=== PATIENT | female | born 1975 | race Caucasian/White ===

== ENCOUNTER → 2019-07-09 15:01 | Outpatient (BNVA) | payer MEDICAID, SELFPAY | PROVIDERS: Family Provider Family Medicine; PCP Family Medicine; Visit Provider Nurse Practitioner Psychiatric/Mental Health | DX: F31.4 Bipolar disorder, current episode depressed, severe, without psychotic features (principal); F43.12 Post-traumatic stress disorder, chronic; F41.1 Generalized anxiety disorder; Z63.79 Other stressful life events affecting family and household | CPT/HCPCS: 99214 ==

== ENCOUNTER → 2019-08-17 12:54 | Outpatient (BNVA) | payer MEDICAID, SELFPAY | PROVIDERS: Family Provider Family Medicine; PCP Family Medicine; Visit Provider Nurse Practitioner Psychiatric/Mental Health | DX: Z63.4 Disappearance and death of family member (principal); F31.4 Bipolar disorder, current episode depressed, severe, without psychotic features; F43.12 Post-traumatic stress disorder, chronic; F41.1 Generalized anxiety disorder | CPT/HCPCS: 99214 ==

== ENCOUNTER → 2019-10-11 08:18 | Outpatient (BNVA) | payer MEDICAID, SELFPAY | PROVIDERS: Family Provider Family Medicine; PCP Family Medicine; Visit Provider Nurse Practitioner Psychiatric/Mental Health | DX: Z63.4 Disappearance and death of family member (principal); F31.4 Bipolar disorder, current episode depressed, severe, without psychotic features; F43.12 Post-traumatic stress disorder, chronic; F41.1 Generalized anxiety disorder | CPT/HCPCS: 99214 ==

== ENCOUNTER → 2019-11-12 08:12 | Outpatient (BNVA) | payer MEDICAID, SELFPAY | PROVIDERS: Family Provider Family Medicine; PCP Family Medicine; Visit Provider Nurse Practitioner Psychiatric/Mental Health | DX: F31.4 Bipolar disorder, current episode depressed, severe, without psychotic features (principal); F43.12 Post-traumatic stress disorder, chronic; F41.1 Generalized anxiety disorder; Z63.4 Disappearance and death of family member | CPT/HCPCS: 99214 ==

== ENCOUNTER → 2019-12-13 07:37 | Outpatient (BNVA) | payer MEDICAID, SELFPAY | PROVIDERS: Family Provider Family Medicine; PCP Family Medicine; Visit Provider Nurse Practitioner Psychiatric/Mental Health | DX: F31.4 Bipolar disorder, current episode depressed, severe, without psychotic features (principal); F43.12 Post-traumatic stress disorder, chronic; F41.1 Generalized anxiety disorder; Z63.4 Disappearance and death of family member | CPT/HCPCS: 99214 ==

== ENCOUNTER → 2020-02-26 09:17 | Outpatient (BNVA) | payer MEDICAID, SELFPAY | PROVIDERS: Family Provider Family Medicine; PCP Family Medicine; Visit Provider Nurse Practitioner Psychiatric/Mental Health | DX: F31.4 Bipolar disorder, current episode depressed, severe, without psychotic features (principal); F43.12 Post-traumatic stress disorder, chronic; F41.1 Generalized anxiety disorder; Z63.4 Disappearance and death of family member; F12.20 Cannabis dependence, uncomplicated | CPT/HCPCS: 99214 ==

== ENCOUNTER → 2020-03-25 08:24 | Outpatient (BNVA) | payer MEDICAID, SELFPAY | PROVIDERS: Family Provider Family Medicine; PCP Family Medicine; Visit Provider Nurse Practitioner Psychiatric/Mental Health | DX: F31.4 Bipolar disorder, current episode depressed, severe, without psychotic features (principal); F43.12 Post-traumatic stress disorder, chronic; F41.1 Generalized anxiety disorder; Z63.4 Disappearance and death of family member | CPT/HCPCS: 99213 ==

== ENCOUNTER → 2020-05-10 16:45 | Outpatient (BNVA) | payer MEDICAID, SELFPAY | PROVIDERS: Family Provider Family Medicine; PCP Family Medicine; Visit Provider Emergency Medicine | DX: M25.521 Pain in right elbow (principal); J02.9 Acute pharyngitis, unspecified; Z20.828 Contact with and (suspected) exposure to other viral communicable diseases | CPT/HCPCS: 73080; 87071; 87635; 87880 ==

== ENCOUNTER 2020-05-16 08:52 | Emergency (ER) | payer MEDICAID, SELFPAY ==
[2020-05-16 09:03] VITALS: BP 106/76; PULSE 89; RESP 18; TEMP 37.3; O2SAT 96; BMI 30.6
[2020-05-16 09:10] VITALS: BP 106/76; PULSE 85; RESP 18; O2SAT 96
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
[2020-05-16] MEDS: ketorolac 60 mg/2 mL INJ IM (09:14)
[2020-05-16 09:18] VITALS: BP 102/72; PULSE 86; RESP 18; TEMP 37.2; O2SAT 96
== END 2020-05-16 09:20 | disposition home or self-care (01) ==
LOC: ER 09:11
PROVIDERS: Emergency Provider Registered Nurse; PCP Family Medicine
DX: M70.31 Other bursitis of elbow, right elbow (principal); J44.9 Chronic obstructive pulmonary disease, unspecified; I10 Essential (primary) hypertension; F17.210 Nicotine dependence, cigarettes, uncomplicated
CPT/HCPCS: 12345; 96372; 99281; 99283; J1885

== ENCOUNTER → 2020-05-26 07:46 | Outpatient (BNVA) | payer MEDICAID, SELFPAY | PROVIDERS: PCP Family Medicine; Visit Provider Nurse Practitioner Psychiatric/Mental Health | DX: F31.4 Bipolar disorder, current episode depressed, severe, without psychotic features (principal); F43.12 Post-traumatic stress disorder, chronic; F41.1 Generalized anxiety disorder; Z63.4 Disappearance and death of family member | CPT/HCPCS: 99214 ==

== ENCOUNTER → 2020-06-24 08:09 | Outpatient (BNVA) | payer MEDICAID, SELFPAY | PROVIDERS: PCP Family Medicine; Visit Provider Nurse Practitioner Psychiatric/Mental Health | DX: F31.4 Bipolar disorder, current episode depressed, severe, without psychotic features (principal); F43.12 Post-traumatic stress disorder, chronic; F41.1 Generalized anxiety disorder; Z63.4 Disappearance and death of family member | CPT/HCPCS: 99214 ==

== ENCOUNTER 2020-07-14 19:20 | Emergency (ER) | payer MEDICAID, SELFPAY ==
[2020-07-14 19:22] VITALS: BP 115/80; PULSE 78; RESP 16; TEMP 36.3; O2SAT 95; BMI 30.1
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
[2020-07-14] MEDS: HYDROcodone-acetaminophen 7.5-325 mg Tablet 1 TAB PO (19:36)
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
[2020-07-14 22:17] VITALS: BP 94/57; PULSE 68; RESP 16; O2SAT 96
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
[2020-07-14 22:24] LABS: Basophils % 0.4 %; Eosinophils # 0.1 10^3/uL (0.0-0.8); Eosinophils % 1.3 %; Hemoglobin 11.7 g/dL (11.5-15.3); Lymphocytes # 2.4 10^3/uL (0.8-4.8); Lymphocytes % 23.7 %; Mean Corpuscular HGB Conc 31.6 g/dL (30.0-36.0); Mean Corpuscular Hemoglobin 26.4 pg (28.0-34.0); Mean Corpuscular Volume 83.5 fL (81-99); Mean Platelet Volume 10.8 fL (7.4-10.4); Monocytes # 1.4 10^3/uL (0.2-0.9); Monocytes % 14.2 %; Neutrophils # 6.07 10^3/uL (1.8-7.7); Neutrophils % 59.8 %; Nucleated Red Blood Cells % 0 %; Platelet Count 267 10^3/cmm (130-400); Red Blood Count 4.43 10^6/uL (4.1-5.3); Red Cell Distribution Width 13.1 % (12.1-15.1); White Blood Count 10.1 10^3/uL (4.0-10.0)
[2020-07-14 22:37] VITALS: BP 86/52; PULSE 74; RESP 16; O2SAT 94
[2020-07-14] MEDS: sodium chloride 0.9% 1,000 ML 999 ML IV ×2 (22:40→23:25)
[2020-07-14 22:49] LABS: Alanine Aminotransferase 31 U/L (0-33); Albumin Level 4.5 g/dL (3.5-5.2); Alkaline Phosphatase 81 IU/L (35-105); Anion Gap 14.2 (5-19); Aspartate Amino Transferase 25 U/L (0-32); Blood Urea Nitrogen 19 mg/dL (6-20); Calcium 9.6 mg/dL (8.5-10.5); Carbon Dioxide 32 mmol/L (22-29); Chloride 95 mmol/L (98-107); Creatinine Clr Calc Pharmacy 58.8242; Globulin 2.5 g/dL (1.3-4.6); Glomerular Filtration Rate 48.8 mL/min (90-130); Glucose 87 mg/dL (65-115); Osmolality Calculated 288 mOsm/kg (285-295); Potassium 3.2 mmol/L (3.5-5.1); Sodium 138 mmol/L (136-145); Total Bilirubin 1.1 mg/dL (0.15-1.2)
[2020-07-14] MEDS: iohexol 300 mg/mL 100 mL Btl IV (22:50)
[2020-07-14 23:02] LABS: Acetaminophen < 5.0 ug/mL (10-30); Alcohol Level < 10 mg/dL (0-10); Salicylate < 0.3 mg/dL (3-10)
[2020-07-14] MEDS: naloxone 0.4 mg/ml SDV IVP (23:22)
[2020-07-14 23:38] VITALS: BP 98/65; PULSE 81; RESP 18; O2SAT 96
[2020-07-14 23:51] LABS: Hematocrit 27.6 % (37.0-47.0); Hemoglobin 8.8 g/dL (11.5-15.3)
[2020-07-15 00:20] LABS: Lactate (Lactic Acid level) 0.5 mmol/L (0.5-2.2)
[2020-07-15 00:59] VITALS: BP 97/68; PULSE 68; RESP 18; O2SAT 96
--- NOTE | 2020-07-15 10:29 | DCPLANNER ---
outpatient pharmacy manager had message to schedule a follow up appointment for patient with ortho. outpatient pharmacy manager called the ortho clinic, spoke with Sheila, gave clinic patients information. outpatient pharmacy manager was told that patients information would be printed and reviewed. Clinic will call patient with appointment.
--- NOTE | 2020-07-22 09:40 | DCPLANNER ---
public health program manager called the ortho clinic, spoke with Sheila to confirm that an appointment had been made for patient. public health program manager was told that clinic was unable to reach patient. public health program manager called phone number [phone], unable to speak with patient at this time, a voicemail was left for patient to return medical case worker phone call.
== END 2020-07-15 01:00 ==
PROVIDERS: Emergency Provider Emergency Medicine; PCP Family Medicine
DX: S32.020A Wedge compression fracture of second lumbar vertebra, initial encounter for closed fracture (principal); D64.9 Anemia, unspecified; J44.9 Chronic obstructive pulmonary disease, unspecified; I10 Essential (primary) hypertension; F17.210 Nicotine dependence, cigarettes, uncomplicated; V89.2XXA Person injured in unspecified motor-vehicle accident, traffic, initial encounter
CPT/HCPCS: 12345; 36415; 70450; 71045; 71260; 72125; 72128; 72131; 72148; 72170; 74177; 80053; 80307; 83605; 85014; 85018; 85025; 96361; 96374; 99283; 99285; J2310; J7030; Q9967

== ENCOUNTER → 2020-08-08 08:17 | Outpatient (BNVA) | payer MEDICAID, SELFPAY | PROVIDERS: PCP Family Medicine; Visit Provider Nurse Practitioner Psychiatric/Mental Health | DX: F31.4 Bipolar disorder, current episode depressed, severe, without psychotic features (principal); F43.12 Post-traumatic stress disorder, chronic; F41.1 Generalized anxiety disorder; Z63.4 Disappearance and death of family member | CPT/HCPCS: 99214 ==

== ENCOUNTER → 2020-09-19 07:48 | Outpatient (BNVA) | payer MEDICAID, SELFPAY | PROVIDERS: PCP Family Medicine; Visit Provider Nurse Practitioner Psychiatric/Mental Health | DX: F31.4 Bipolar disorder, current episode depressed, severe, without psychotic features (principal); F43.12 Post-traumatic stress disorder, chronic; F41.1 Generalized anxiety disorder; Z63.4 Disappearance and death of family member | CPT/HCPCS: 99214 ==

== ENCOUNTER → 2020-10-29 13:38 | Outpatient (BNVA) | payer MEDICAID, SELFPAY | PROVIDERS: PCP Family Medicine; Visit Provider Nurse Practitioner Psychiatric/Mental Health | DX: F31.4 Bipolar disorder, current episode depressed, severe, without psychotic features (principal); F43.12 Post-traumatic stress disorder, chronic; F41.1 Generalized anxiety disorder; Z63.4 Disappearance and death of family member | CPT/HCPCS: 99214 ==

== ENCOUNTER → 2020-12-03 08:10 | Outpatient (BNVA) | payer MEDICAID, SELFPAY | PROVIDERS: PCP Family Medicine; Visit Provider Nurse Practitioner Psychiatric/Mental Health | DX: F31.62 Bipolar disorder, current episode mixed, moderate (principal); F43.12 Post-traumatic stress disorder, chronic; F41.1 Generalized anxiety disorder; Z63.4 Disappearance and death of family member | CPT/HCPCS: 99214 ==

== ENCOUNTER → 2021-03-11 16:09 | Outpatient (BNVA) | payer MEDICAID, SELFPAY | PROVIDERS: PCP Family Medicine; Visit Provider Family Medicine | DX: I10 Essential (primary) hypertension (principal); J30.2 Other seasonal allergic rhinitis; J41.0 Simple chronic bronchitis; K21.9 Gastro-esophageal reflux disease without esophagitis; Z13.220 Encounter for screening for lipoid disorders; Z13.6 Encounter for screening for cardiovascular disorders; D64.9 Anemia, unspecified; R74.8 Abnormal levels of other serum enzymes | CPT/HCPCS: 80053; 80061; 85025 ==

== ENCOUNTER → 2021-07-09 07:42 | Outpatient (BNVA) | payer MEDICAID, SELFPAY | PROVIDERS: PCP Family Medicine; Visit Provider Nurse Practitioner Psychiatric/Mental Health | DX: F31.62 Bipolar disorder, current episode mixed, moderate (principal); F43.12 Post-traumatic stress disorder, chronic; F41.1 Generalized anxiety disorder; Z63.4 Disappearance and death of family member; Z79.899 Other long term (current) drug therapy | CPT/HCPCS: 99214 ==

== ENCOUNTER 2021-09-22 13:10 | Emergency (ER) | payer MEDICAID, SELFPAY ==
--- NOTE | 2021-09-22 13:14 | W.ED.GENADLT ---
HPI - General Adult General: Chief complaint: Back Pain/Injury Stated complaint: SWELLING/PAIN BILAT LEGS Time Seen by Provider: 09/22/21 13:14 Source: patient Mode of arrival: ambulatory Limitations: no limitations History of Present Illness: 45-year-old female patient complaining of low back pain worse when she moves. Denies any recent trauma no radiation of pain into the legs visibly urinate without difficulty no fecal incontinence Onset (ago): minute(s) Location: back Radiation: non-radiation Severity: moderate Quality: sharp Pain Consistency: intermittent Relieving factors: none Exacerbating factors: none Associated symptoms: Deny chest pain, confusion, cough, diaphoresis, decreased appetite, dyspnea, fevers/chills, headache(s), malaise, nausea, rash, palpitations, seizures, short of breath, syncope, vomiting or weakness Review of Systems Const: Denies: malaise or diaphoresis ENMT: Denies: throat pain, ear or mastoid pain, nasal discharge or nasal congestion Card: Denies: chest pain, palpitations or syncope Resp: Denies: dyspnea GI: Denies: nausea or vomiting : Denies: flank pain, difficulty voiding, dysuria, urinary frequency or urinary urgency Skin/Breast: Denies: rash Neuro: Denies: headache(s) or confusion PFSH ED PFSH: Medical History Bereavement Loss of mother Bipolar 1 disorder, mixed, moderate COPD (chronic obstructive pulmonary disease) Fibromyalgia Generalized anxiety disorder GERD (gastroesophageal reflux disease) Hypertension LEON (obstructive sleep apnea) Post-traumatic stress disorder, chronic Psychiatric care Psychiatric care Restless leg syndrome Sciatica Seasonal allergies Surgical History H/O adenoidectomy H/O shoulder surgery H/O tubal ligation H/O wrist surgery H/O: hysterectomy Hx of tonsillectomy Family History Other CAD (coronary artery disease) Cancer Diabetes Lung disease Stroke Social History Smoking and tobacco status: current every day smoker cigarettes Packs smoked per day: 1 Years cigarettes smoked: 32 Quit status (tobacco): not considering quitting Second hand smoke exposure: Yes Smoking risk assessment/counseling performed?: Yes Tobacco counseling given: counseling >3 minutes Alcohol intake: current Alcohol intake frequency: holidays/special occasions only Adopted: No Caregiver/support person: No Lives independently: Yes Household members: other Housing: Manufactured/Mobile home Marital status: Marital status details: a very long time 2004 Number of children: 2 Number of grandchildren: 1 Highest education level completed: Associate Degree: Occupational, Technical, Vocational Program 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 service: No Current occupational status: disabled Current occupational exposures/hazards: No Pets and animals: Yes (3 cats and 2 dogs) Pets & animals: cat(s) and dog(s) History of recent travel: No Leisure activites: art, games and other Leisure activities details: spend time with grandbaby Sexually active: No Current gender identity: Female Damari/Church: [employer] Special damari needs: No Agree to transfusion: Yes Financial difficulty paying for basics: Hard Female Reproductive History: Para: 2 Spontaneous abortions: No Physical Exam Const: GENERAL APPEARANCE: cooperative ORIENTATION/CONSCIOUSNESS: Yes awake HENMT: COMMON NORMALS: normocephalic, atraumatic and hearing grossly normal bilaterally HEAD & SCALP: normocephalic and atraumatic Neck/C-Spine: COMMON NORMALS: no JVD Resp: COMMON NORMALS: normal respiratory effort, No retractions, No use of accessory muscles and clear to auscultation bilaterally AUSCULTATION: clear to auscultation bilaterally Cardio: COMMON NORMALS: no JVD, regular rate, regular rhythm and No murmurs present (Cardio) RATE: regular rate RHYTHM: regular rhythm GI: COMMON NORMALS: Soft to palpation and No hepatosplenomegaly present AUSCULTATION: Yes normoactive bowel sounds PALPATION: Yes Soft to palpation, No Tenderness to palpation present (GI), No Guarding due to palpation present (GI) and Yes No hepatosplenomegaly present Extremity: COMMON NORMALS: normal to inspection, capillary refill normal, no clubbing, cyanosis or edema, no calf tenderness and no pedal edema Neuro: GAIT: Yes Normal gait present MOTOR EXAM: 5/5 motor strength present throughout OTHER: Leg raising is negative bilaterally Skin: COMMON NORMALS: no rashes or lesions noted GENERAL SKIN EXAM: no rashes or lesions noted Course Vital Signs: Vital signs: Vital Signs Temperature 98.0 F 09/22/21 13:21 Pulse Rate 90 09/22/21 14:04 Respiratory Rate 20 H 09/22/21 14:04 Blood Pressure 120/36 09/22/21 13:21 Pulse Oximetry 96 09/22/21 14:04 MDM - General Adult Medical Decision Making Exam unremarkable no significant swelling lower extremities deep tendon reflexes lower extremities are normal. No acute findings were Goeden discharge home follow-up with primary care return if has problems Medical Records I reviewed the patient's medical records. Lab Data I reviewed the patient's lab results. : 09/22/21 13:50 09/22/21 13:50 Laboratory Results WBC 6.3 10^3/uL (4.0-10.0) 09/22/21 13:50 RBC 4.10 10^6/uL (4.1-5.3) 09/22/21 13:50 Hgb 11.6 g/dL (11.5-15.3) 09/22/21 13:50 Hct 35.2 % (37.0-47.0) L 09/22/21 13:50 MCV 85.9 fl (81-99) 09/22/21 13:50 MCH 28.3 pg (28.0-34.0) 09/22/21 13:50 MCHC 33.0 g/dL (30.0-36.0) 09/22/21 13:50 RDW 16.0 % (12.1-15.1) H 09/22/21 13:50 Plt Count 278 10^3/cmm (130-400) 09/22/21 13:50 MPV 9.8 fL (7.4-10.4) 09/22/21 13:50 Neut % (Auto) 55.1 % 09/22/21 13:50 Lymph % (Auto) 25.2 % 09/22/21 13:50 Refugio % (Auto) 16.6 % 09/22/21 13:50 Eos % (Auto) 2.2 % 09/22/21 13:50 Baso % (Auto) 0.6 % 09/22/21 13:50 Neut # (Auto) 3.45 10^3/uL (1.8-7.7) 09/22/21 13:50 Lymph # (Auto) 1.6 10^3/uL (0.8-4.8) 09/22/21 13:50 [place]ugio # (Auto) 1.0 10^3/uL (0.2-0.9) H 09/22/21 13:50 Eos # (Auto) 0.1 10^3/uL (0.0-0.8) 09/22/21 13:50 Baso # (Auto) 0.0 10^3/uL (0.0-0.1) 09/22/21 13:50 Nucleated RBC % (auto) 0 % 09/22/21 13:50 Nucleated RBCs # 0.0 /100WBC 09/22/21 13:50 Sodium 137 mmol/L (136-145) 09/22/21 13:50 Potassium 3.8 mmol/L (3.5-5.1) 09/22/21 13:50 Chloride 95 mmol/L (98-107) L 09/22/21 13:50 Carbon Dioxide 28 mmol/L (22-29) 09/22/21 13:50 Anion Gap 17.8 (5-19) 09/22/21 13:50 BUN 11 mg/dL (6-20) 09/22/21 13:50 Creatinine 1.0 mg/dL (0.5-0.9) H 09/22/21 13:50 GFR Calculation 60.0 mL/min (90-130) L 09/22/21 13:50 Glucose 98 mg/dL (65-115) 09/22/21 13:50 Calculated Osmolality 283 mOsm/kg (285-295) L 09/22/21 13:50 Calcium 10.0 mg/dL (8.5-10.5) 09/22/21 13:50 Total Bilirubin 0.5 mg/dL (0.15-1.2) 09/22/21 13:50 AST 30 U/L (0-32) 09/22/21 13:50 ALT 20 U/L (0-33) 09/22/21 13:50 Alkaline Phosphatase 94 IU/L (35-105) 09/22/21 13:50 Total Protein 7.2 g/dL (6.6-8.7) 09/22/21 13:50 Albumin 4.2 g/dL (3.5-5.2) 09/22/21 13:50 Globulin 3.0 g/dL (1.3-4.6) 09/22/21 13:50 Discharge Plan Discharge Patient Disposition: Home Clinical Impression: Back pain, Bipolar 1 disorder, mixed, moderate Condition: Stable Prescriptions: New diclofenac sodium 75 mg tablet,delayed release (DR/EC) 75 mg PO Q12H PRN (Reason: pain) Qty: 20 0RF No Action fluticasone propionate 50 mcg/actuation spray,suspension 1 spray intranasal Q12H Qty: 15.8 1RF Rx Instructions: administer into each nostril fluticasone propion-salmeterol [Advair Diskus] 100-50 mcg/dose blister with device See Rx Instructions .ROUTE .COMPLEX Qty: 60 2RF Dose Instruction: INHALE 1 DOSE BY MOUTH EVERY 12 HOURS Rx Instructions: INHALE 1 DOSE BY MOUTH EVERY 12 HOURS atenolol 25 mg tablet See Rx Instructions .ROUTE .COMPLEX Qty: 30 2RF Dose Instruction: Take 1 tablet by mouth once daily Rx Instructions: Take 1 tablet by mouth once daily montelukast 10 mg tablet See Rx Instructions .ROUTE .COMPLEX Qty: 30 2RF Dose Instruction: Take 1 tablet by mouth once daily Rx Instructions: Take 1 tablet by mouth once daily promethazine 25 mg tablet See Rx Instructions .ROUTE .COMPLEX Qty: 60 2RF Dose Instruction: TAKE 1 TABLET BY MOUTH EVERY 12 HOURS NEEDED FOR NAUSEA AND VOMITING Rx Instructions: TAKE 1 TABLET BY MOUTH EVERY 12 HOURS NEEDED FOR NAUSEA AND VOMITING fexofenadine [Zoila Allergy] 180 mg tablet 180 mg PO Q24H 30 Days Qty: 30 2RF lamotrigine [Lamictal] 200 mg tablet 200 mg PO QAM Qty: 30 4RF Rx Instructions: Take one tablet every morning quetiapine [Seroquel XR] 200 mg tablet extended release 24 hr 200 mg PO .7 pm Qty: 30 6RF Rx Instructions: Take one tablet at 7 pm quetiapine [Seroquel XR] 400 mg tablet extended release 24 hr 400 mg PO .7 pm Qty: 30 6RF Rx Instructions: Take one tablet at 7 pm duloxetine [Cymbalta] 60 mg capsule,delayed release(DR/EC) 60 mg PO .morning Qty: 60 6RF Rx Instructions: Take two capsules in morning buspirone 30 mg tablet 30 mg PO BID Qty: 60 6RF Rx Instructions: Take one tablet twice per day benztropine 1 mg tablet 1 mg PO BID Qty: 60 6RF Rx Instructions: Take one tablet twice per day benztropine 2 mg tablet 2 mg PO BID Qty: 60 6RF Rx Instructions: Take one tablet twice per day hydroxyzine pamoate 100 mg capsule 100 mg PO TID PRN (Reason: anxiety) Qty: 90 2RF Rx Instructions: Take one capsule three times per day as needed for anxiety mupirocin 2 % ointment See Rx Instructions .ROUTE .COMPLEX Qty: 22 0RF Dose Instruction: APPLY TOPICALLY TO AFFECTED AREA TWICE DAILY Rx Instructions: APPLY TOPICALLY TO AFFECTED AREA TWICE DAILY omeprazole 40 mg capsule,delayed release(DR/EC) See Rx Instructions .ROUTE .COMPLEX Qty: 60 0RF Dose Instruction: Take 1 capsule by mouth twice daily Rx Instructions: Take 1 capsule by mouth twice daily hydrochlorothiazide 12.5 mg capsule See Rx Instructions .ROUTE .COMPLEX Qty: 30 0RF Dose Instruction: Take 1 capsule by mouth in the morning Rx Instructions: Take 1 capsule by mouth in the morning tizanidine 4 mg tablet 6 mg PO Q6H PRN (Reason: muscle spasticity) 30 Days Qty: 180 0RF Discharge Orders: Discharge ED (Routine); Ordered 09/22/21 Ordered By: Erik Connolly Referrals: Lian Sylvester MD [Primary Care Provider] - Discharge Diet: Usual diet Discharge Activity: Increase activity as tolerated Patient Instructions: Opioid Safety Activity Restrictions/Additional Instructions: Case management make arrangements for you to follow-up with behavioral health. Coding Level of Care Code ED Research And Development Specialist for Jenni Fwd Exam Comprehensive
[2021-09-22 13:21] VITALS: BP 120/36; PULSE 104; RESP 20; TEMP 36.7; O2SAT 96; BMI 28.3
[2021-09-22 14:04] VITALS: PULSE 90; RESP 20; O2SAT 96
[2021-09-22 14:13] LABS: Basophils % 0.6 %; Eosinophils # 0.1 10^3/uL (0.0-0.8); Eosinophils % 2.2 %; Hematocrit 35.2 % (37.0-47.0); Hemoglobin 11.6 g/dL (11.5-15.3); Lymphocytes # 1.6 10^3/uL (0.8-4.8); Lymphocytes % 25.2 %; Mean Corpuscular Hemoglobin 28.3 pg (28.0-34.0); Mean Corpuscular Volume 85.9 fl (81-99); Mean Platelet Volume 9.8 fL (7.4-10.4); Monocytes % 16.6 %; Neutrophils # 3.45 10^3/uL (1.8-7.7); Neutrophils % 55.1 %; Nucleated Red Blood Cells % 0 %; Platelet Count 278 10^3/cmm (130-400); White Blood Count 6.3 10^3/uL (4.0-10.0)
--- NOTE | 2021-09-22 14:16 | PC.NURSE ---
1330- Labs drawn. Awaiting XR. Patient remains fidgety/restless, going through bags. Attempt to redirect is helpful for short period of time, about 5 minutes. Then erratic behavior returns.
[2021-09-22 14:35] LABS: Alanine Aminotransferase 20 U/L (0-33); Albumin Level 4.2 g/dL (3.5-5.2); Alkaline Phosphatase 94 IU/L (35-105); Aspartate Amino Transferase 30 U/L (0-32); Blood Urea Nitrogen 11 mg/dL (6-20); Carbon Dioxide 28 mmol/L (22-29); Chloride 95 mmol/L (98-107); Creatinine Clr Calc Pharmacy 67.8188; Glucose 98 mg/dL (65-115); Osmolality Calculated 283 mOsm/kg (285-295); Sodium 137 mmol/L (136-145); Total Bilirubin 0.5 mg/dL (0.15-1.2); Total Protein 7.2 g/dL (6.6-8.7)
[2021-09-22 14:46] LABS: Anion Gap 17.8 (5-19); Potassium 3.8 mmol/L (3.5-5.1)
== END 2021-09-22 15:43 | disposition home or self-care (01) ==
PROVIDERS: Emergency Provider Family Medicine; PCP Family Medicine
DX: M54.50 Low back pain, unspecified (principal); F31.62 Bipolar disorder, current episode mixed, moderate; F17.210 Nicotine dependence, cigarettes, uncomplicated; I10 Essential (primary) hypertension
CPT/HCPCS: 80053; 85025; 99283

== ENCOUNTER → 2021-10-26 11:38 | Outpatient (BNVA) | payer MEDICAID, SELFPAY | PROVIDERS: PCP Family Medicine; Visit Provider Emergency Medicine | DX: R73.09 Other abnormal glucose (principal); L03.114 Cellulitis of left upper limb; W57.XXXA Bitten or stung by nonvenomous insect and other nonvenomous arthropods, initial encounter | CPT/HCPCS: 83036 ==

== ENCOUNTER → 2023-02-18 15:08 | Outpatient (BNVA) | payer MEDICAID, SELFPAY | PROVIDERS: PCP Family Medicine; Visit Provider Nurse Practitioner Psychiatric/Mental Health | DX: Z79.899 Other long term (current) drug therapy (principal); F31.62 Bipolar disorder, current episode mixed, moderate; F43.12 Post-traumatic stress disorder, chronic; F41.1 Generalized anxiety disorder; F12.90 Cannabis use, unspecified, uncomplicated; F17.290 Nicotine dependence, other tobacco product, uncomplicated | CPT/HCPCS: 80053; 80061; 83036 ==

== ENCOUNTER → 2023-03-22 16:14 | Outpatient (BNVA) | payer MEDICAID, SELFPAY | PROVIDERS: PCP Family Medicine; Visit Provider Nurse Practitioner Family | DX: R69 Illness, unspecified (principal); I10 Essential (primary) hypertension; B34.9 Viral infection, unspecified; R51.9 Headache, unspecified; G89.29 Other chronic pain | CPT/HCPCS: 87400; 87426 ==

== ENCOUNTER → 2023-04-11 13:22 | Outpatient (BNVA) | payer MEDICAID, SELFPAY | PROVIDERS: PCP Family Medicine; Referring Provider Family Medicine; Visit Provider Family Medicine | DX: M51.9 Unspecified thoracic, thoracolumbar and lumbosacral intervertebral disc disorder (principal) | CPT/HCPCS: 72100 ==

== ENCOUNTER → 2023-05-03 11:08 | Outpatient (BNVA) | payer MEDICAID, OTHER, SELFPAY | PROVIDERS: PCP Family Medicine; Visit Provider Emergency Medicine | DX: R68.89 Other general symptoms and signs (principal) | CPT/HCPCS: 87400; 87426 ==

== ENCOUNTER → 2023-06-09 14:52 | Outpatient (BNVA) | payer MEDICAID, SELFPAY ==
[2023-06-01 09:40] VITALS: BP 132/90; BMI 33.1
== END ==
PROVIDERS: PCP Family Medicine; Visit Provider Emergency Medicine
DX: M25.561 Pain in right knee (principal)
CPT/HCPCS: 73562

== ENCOUNTER 2023-06-18 18:16 | Emergency (ER) | payer MEDICAID, SELFPAY ==
[2023-06-01 09:40] VITALS: BP 132/90; BMI 33.1
[2023-06-18 18:40] VITALS: BP 119/85; PULSE 92; RESP 16; O2SAT 99
--- NOTE | 2023-06-18 19:20 | ECG_ITS ---
[facility] Test Date: 2023-06-18 Pat Name: Arjun Esquivel Department: Room: Gender: Female It Support Consultant: : 1975 Requested By: Hudson Ross Order Number: [id number] Danna MD: Ezequiel Merritt M.D. Measurements Intervals [place] Rate: 80 P: 7 MT: 144 QRS: 21 QRSD: 101 T: 29 QT: 385 QTc: 446 Interpretive Statements SINUS RHYTHM NONSPECIFIC T-WAVE ABNORMALITY Compared to ECG 02/17/2017 13:16:06 T-wave abnormality now present Electronically Signed On 06-19-2023 19:36:24 IMPLEMENTATION COORDINATOR by Ezequiel Merritt M.D. [id number]
[2023-06-18 19:25] VITALS: BP 106/84; BP 120/86; BP 123/86; PULSE 81; PULSE 85; PULSE 88
[2023-06-18 19:35] LABS: Basophils # 0.1 10^3/uL (0.0-0.1); Basophils % 0.9 %; Eosinophils # 0.2 10^3/uL (0.0-0.8); Eosinophils % 2.2 %; Hematocrit 39.6 % (36-47); Lymphocytes # 2.2 10^3/uL (0.8-4.8); Lymphocytes % 30.2 %; Mean Corpuscular HGB Conc 32.8 g/dL (30-55); Mean Corpuscular Volume 85.3 fl (85-98); Mean Platelet Volume 9.5 fL (7.4-10.4); Monocytes # 0.8 10^3/uL (0.2-0.9); Monocytes % 11.4 %; Neutrophils # 4.06 10^3/uL (1.8-7.7); Neutrophils % 54.9 %; Nucleated Red Blood Cells % 0 %; Platelet Count 224 10^3/cmm (157-399); Red Blood Count 4.64 10^6/uL (3.85-5.65); Red Cell Distribution Width 11.9 % (12.1-15.1); White Blood Count 7.39 10^3/uL (3.29-11.43)
--- NOTE | 2023-06-18 19:36 | ED_ITS ---
HPI - Dizziness 2 General: Chief Complaint: Dizziness Stated Complaint: back pain, light headed, swelling in bilateral leg Time Seen by Provider: 06/18/23 18:38 History of Present Illness: HPI Narrative: 47-year-old female comes into the ER wit h several complaints. The first is that of dizziness. She notes increased dizziness for the past 3 to 4 days. She notes that mostly with change in position. She says that she sees stars, and feels like she may pass out. It is not vertiginous. She was placed on metoprolol recently. She is also on hydrochlorothiazide and losartan. She has not been able to check her blood pressure. She denies chest discomfort, significant shortness of breath. She does admit to bilateral leg swelling. She also complains of right knee pain. This pain has been present for quite some time. She has a locking sensation, and she points to her medial joint line. She was told to use heat and observe, and was placed on Celebrex. It has not seemed to help. She has been dealing with chronic back pain as well. Associated symptoms: Reports headache(s) (Chronic); Denies chest pain, palpitations or vomiting Review of Systems 2 Const: Denies: fever(s) ENMT: Denies: throat pain Card: Denies: chest pain or palpitations Resp: Denies: dyspnea or productive cough GI: Denies: abdominal pain, vomiting or diarrhea : Denies: flank pain Musc: Reports: back pain, joint pain and joint swelling; Denies: joint redness Skin/Breast: Denies: rash Neuro: Reports: headache(s) (Chronic) PFSH ED 2 PFSH: Medical History Peripheral edema Vaping nicotine dependence, tobacco product Marijuana use, episodic chronic pain Psychiatric care Psychiatric care Bipolar 1 disorder, mixed, moderate COPD (chronic obstructive pulmonary disease) LEON (obstructive sleep apnea) Restless leg syndrome Fibromyalgia GERD (gastroesophageal reflux disease) Hypertension Seasonal allergies Generalized anxiety disorder Post-traumatic stress disorder, chronic Surgical History H/O: hysterectomy H/O tubal ligation Hx of tonsillectomy H/O adenoidectomy H/O wrist surgery H/O shoulder surgery Family History Other CAD (coronary artery disease) Cancer Diabetes Lung disease Stroke Social History Smoking and tobacco/nicotine status: current every day tobacco/nicotine user cigarettes Packs smoked per day: 0 Years cigarettes smoked: 32 [ Other cigarette details: quit cigarettes and only vapes] and e-cigarettes E-Cigarette Details: e-cigarette and with nicotine E-cig/vape details: refills 1-2 times a day - 50 mg of nicotine(client showed me the cartridge) Quit status (tobacco/nicotine): has tried quititng Number of times tried to quit tobacco: 2 Second hand smoke exposure: Yes Alcohol intake: current Alcohol intake frequency: few times a month Alcohol type: wine Substance/Drug Use: never Adopted: No Caregiver/support person: No Lives independently: Yes Household members: none Housing: Manufactured/Mobile home Marital status: Marital status details: a very long time 2004 Number of children: 2 Number of grandchildren: 2 Highest education level completed: Associate Degree: Occupational, Technical, Vocational Program 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 service: No Current occupational status: disabled Current occupation: trying to get disability Current occupational exposures/hazards: No Pets and animals: Yes (3 cats and 2 dogs) Pets & animals: cat(s) and dog(s) Leisure activites: art, games, reading and other Leisure activities details: nathalie Sexually active: No Do you think of yourself as: Straight/Heterosexual Current gender identity: Female Damari/Yazidism: Wicca Special damari needs: No Agree to transfusion: Yes Female Reproductive History: Para: 2 Spontaneous abortions: No Physical Exam 2 Const: COMMON NORMALS: no acute distress GENERAL APPEARANCE: cooperative; not ill appearing and not frail appearing HENMT: COMMON NORMALS: normocephalic, atraumatic and Normal external nose present HEAD & SCALP: normocephalic and atraumatic FACE & SINUS: normal facial exam and face symmetric NOSE: Normal external nose present Eye: COMMON NORMALS: Equal, round and reactive pupils present and EOMs intact bilaterally PUPIL: Yes Equal, round and reactive pupils present Neck/C-Spine: GENERAL: Yes trachea midline Chest: CHEST: Yes Symmetrical chest wall rise Resp: COMMON NORMALS: normal respiratory effort, No retractions, No use of accessory muscles and clear to auscultation bilaterally AUSCULTATION: clear to auscultation bilaterally Cardio: COMMON NORMALS: regular rate and regular rhythm RATE: regular rate RHYTHM: regular rhythm GI: COMMON NORMALS: Normal to inspection, nondistended, normoactive bowel sounds present Extremity: COMMON NORMALS: no pedal edema NARRATIVE EXTREMITY EXAM: Examination of the right lower extremity reveals a small knee joint effusion. There is tenderness to palpation medial joint line. There is deep flexion pain. No extension lag. Neuro: YARA COMA SCALE: document GCS findings [facility] coma scale eye opening: Spontaneous [facility] coma scale verbal response: Orientated [facility] coma scale motor response: Obey commands [facility] coma scale total score: 15 S ENSORY EXAM: Yes extremities (intact) Psych: COMMON NORMALS: speech normal SPEECH: Yes normal speech Skin: COMMON NORMALS: no rashes or lesions noted GENERAL SKIN EXAM: no rashes or lesions noted Course 2 Vital Signs: Vital signs: Vital Signs Pulse Rate 81 06/18/23 19:25 Respiratory Rate 16 06/18/23 18:40 Blood Pressure 106/84 06/18/23 19:25 Pulse Oximetry 99 06/18/23 18:40 Oxygen Delivery Me thod Room Air 06/18/23 18:40 MDM - Dizziness Medical Decision Making 47-year-old female with dizziness. She is not orthostatic. CBC is normal. BMP shows an elevation in her creatinine above baseline. This may be from starting Celebrex. Urinalysis is equivocal. BNP is nondetectable. Liver enzymes show an ALT of 34. EKG shows sinus rhythm with normal axis, normal intervals, and no acute ST wave changes. Rate is 80. Head CT is pending. If negative, she will be allowed discharge. Lab Data 06/18/23 19:19 06/18/23 19:[address] 06/18/23 21:09 IMPRESSION: No acute findings. Laboratory Results WBC 7.39 10^3/uL (3.29-11.43) 06/18/23 19:19 RBC 4.64 10^6/uL (3.85-5.65) 06/18/23 19:19 Hgb 13.00 g/dL (11.27-16.99) 06/18/23 19:19 Hct 39.6 % (36-47) 06/18/23 19:19 MCV 85.3 fl (85-98) 06/18/23 19:19 MCH 28.0 pg (27-33) 06/18/23 19:19 MCHC 32.8 g/dL (30-55) 06/18/23 19:19 RDW 11.9 % (12.1-15.1) L 06/18/23 19:19 Plt Count 224 10^3/cmm (157-399) 06/18/23 19:19 MPV 9.5 fL (7.4-10.4) 06/18/23 19:19 Neut % (Auto) 54.9 % 06/18/23 19:19 Lymph % (Auto) 30.2 % 06/18/23 19:19 Owen % (Auto) 11.4 % 06/18/23 19:19 Eos % (Auto) 2.2 % 06/18/23 19:19 Baso % (Auto) 0.9 % 06/18/23 19:19 Neut # (Auto) 4.06 10^3/uL (1.8-7.7) 06/18/23 19:19 Lymph # (Auto) 2.2 10^3/uL (0.8-4.8) 06/18/23 19:19 Owen # (Auto) 0.8 10^3/uL (0.2-0.9) 06/18/23 19:19 Eos # (Auto) 0.2 10^3/uL (0.0-0.8) 06/18/23 19:19 Baso # (Auto) 0.1 10^3/uL (0.0-0.1) 06/18/23 19:19 Nucleated RBC % (auto) 0 % 06/18/23 19:19 Nucleated RBCs # 0.0 /100WBC 06/18/23 19:19 Sodium 141 mmol/L (136-145) 06/18/23 19:19 Potassium 3.5 mmol/L (3.5-5.1) 06/18/23 19:19 Chloride 99 mmol/L (98-107) 06/18/23 19:19 Carbon Dioxide 28 mmol/L (22-29) 06/18/23 19:19 Anion Gap 17.5 (5-19) 06/18/23 19:19 BUN 11 mg/dL (6-20) 06/18/23 19:19 Creatinine 1.1 mg/dL (0.5-0.9) H 06/18/23 19:19 GFR Calculation 53.2 mL/min (90-130) L 06/18/23 19:19 Glucose 86 mg/dL (65-115) 06/18/23 19:19 Calculated Osmolality 291 mOsm/kg (285-295) 06/18/23 19:19 Calcium 9.2 mg/dL (8.5-10.5) 06/18/23 19:19 Magnesium 2.2 mg/dL (1.7-2.3) 06/18/23 19:19 Total Bilirubin 0.3 mg/dL (0.15-1.2) 06/18/23 19:19 AST 26 U/L (0-32) 06/18/23 19:19 ALT 34 U/L (0-33) H 06/18/23 19:19 Alkaline Phosphatase 120 U/L (35-105) H 06/18/23 19:19 NT-Pro-B Natriuret Pep < 36 pg/mL (0-125) 06/18/23 19:19 Total Protein 6.8 g/dL (6.6-8.7) 06/18/23 19:19 Albumin 4.4 g/dL (3.5-5.2) 06/18/23 19:19 Globulin 2.4 g/dL (1.3-4.6) 06/18/23 19:19 Urine Color Yellow (Yellow) 06/18/23 19:44 Urine Appearance Clear (CLEAR) 06/18/23 19:44 Urine pH 5 (5-7) 06/18/23 19:44 Ur Specific [place] 1.015 (1.005-1.030) 06/18/23 19:44 Urine Protein Neg (Negative) 06/18/23 19:44 Urine Glucose (UA) Norm (Normal) 06/18/23 19:44 Urine Ketones Negative (Negative) 06/18/23 19:44 Urine Blood Neg (Negative) 06/18/23 19:44 Urine Nitrate Negative (Negative) 06/18/23 19:44 Urine Bilirubin 1+ (Negative) H 06/18/23 19:44 Urine Urobilinogen Neg mg/dL (Negative) 06/18/23 19:44 Ur Leukocyte Esterase Trace (Negative) H 06/18/23 19:44 Urine RBC 0-4 /hpf (0-2) H 06/18/23 19:44 Urine WBC 5-10 /hpf (0-5) H 06/18/23 19:44 Ur Squamous Epith Cells 10-15 /hpf (0-5) H 06/18/23 19:44 Amorphous Sediment Not Reportable 06/18/23 19:44 Urine Bacteria 1+ /hpf (NONE) H 06/18/23 19:44 All radiology interpretation(s) finalized by discharge Discharge Plan Discharge Patient Disposition: Home Clinical Impression: Bilateral edema of lower extremity, Dizziness Condition: Stable Prescriptions: New furosemide 20 mg tablet 20 mg PO BID Qty: 7 0RF Discontinued hydrochlorothiazide 25 mg tablet 25 mg PO QAM Qty: 30 1RF No Action quetiapine [Seroquel] 100 mg tablet 100 mg PO BID Qty: 60 6RF Rx Instructions: Take one tablet every morning and late afternoon quetiapine [Seroquel XR] 400 mg tablet extended release 24 hr 400 mg PO .7 pm Qty: 30 6RF Rx Instructions: Take one tablet at 7 pm buspirone 10 mg tablet 20 mg PO BID Qty: 120 4RF Rx Instructions: Take two tablets twice per day, last dose no later than 4 pm hydroxyzine pamoate [Vistaril] 50 mg capsule 50 mg PO BID PRN (Reason: anxiety/itching) Qty: 60 3RF Rx Instructions: May take one capsule twice per day as needed for anxiety/itching fluticasone propionate 50 mcg/actuation spray,suspension 1 spray intranasal BID PRN (Reason: allergy symptoms) Qty: 16 5RF Rx Instructions: administer into each nostril omeprazole 40 mg capsule,delayed release(DR/EC) 40 mg PO BID 90 Days Qty: 180 1RF levocetirizine 5 mg tablet 5 mg PO DAILY PRN (Reason: allergy symptoms) 90 Days Qty: 90 1RF metoprolol succinate 25 mg tablet extended release 24 hr 25 mg PO DAILY 90 Days Qty: 90 1RF losartan 50 mg tablet 50 mg PO DAILY 90 Days Qty: 90 1RF fluticasone propion-salmeterol [Advair Diskus] 100-50 mcg/dose blister with device See Rx Instructions .ROUTE .COMPLEX Qty: 60 5RF Dose Instruction: INHALE 1 DOSE BY MOUTH EVERY 12 HOURS Rx Instructions: INHALE 1 DOSE BY MOUTH EVERY 12 HOURS methocarbamol 750 mg tablet 750 mg PO BID PRN (Reason: muscle pain) Qty: 60 2RF celecoxib [Celebrex] 50 mg capsule 50 mg PO BID Qty: 60 2RF Discharge Orders: Discharge ED (Routine); Ordered 06/18/23 Ordered By: Hudson Braxton Referrals: Lian Sylvester MD [Primary Care Provider] - Patient Instructions: Opioid Safety, Pain Management Coding Level of Care Code ED Materials Manager for Jenni Lazo
[2023-06-18 20:15] LABS: Specific Gravity, Urine 1.015 (1.005-1.030); Urine Appearance Clear (CLEAR); Urine Color Yellow (Yellow); pH Urine 5 (5-7)
[2023-06-18 20:16] LABS: Add Urine Microscopic? YES; Bacteria Urine 1+ /hpf; Bilirubin Urine 1+ (Negative); Blood Urine Neg (Negative); Glucose Urine UA Norm (Normal); Ketones Urine Negative (Negative); Leukocyte Esterase Urine Trace (Negative); Nitrate Urine Negative (Negative); Protein Urine Neg (Negative); RBC Urine 0-4 /hpf (0-2); Urobilinogen Urine Neg (Negative)
[2023-06-18 20:25] LABS: Alanine Aminotransferase 34 U/L (0-33); Albumin Level 4.4 g/dL (3.5-5.2); Alkaline Phosphatase 120 U/L (35-105); Aspartate Amino Transferase 26 U/L (0-32); Blood Urea Nitrogen 11 mg/dL (6-20); Calcium 9.2 mg/dL (8.5-10.5); Carbon Dioxide 28 mmol/L (22-29); Chloride 99 mmol/L (98-107); Globulin 2.4 g/dL (1.3-4.6); Glomerular Filtration Rate 53.2 mL/min (90-130); Glucose 86 mg/dL (65-115); Magnesium 2.2 mg/dL (1.7-2.3); NT Pro B Type Natriuretic Pept < 36 pg/mL (0-125); Osmolality Calculated 291 mOsm/kg (285-295); Sodium 141 mmol/L (136-145); Total Bilirubin 0.3 mg/dL (0.15-1.2); Total Protein 6.8 g/dL (6.6-8.7)
[2023-06-18 20:41] LABS: Anion Gap 17.5 (5-19); Potassium 3.5 mmol/L (3.5-5.1)
[2023-06-18 21:00] VITALS: BP 130/87; PULSE 83; O2SAT 99
[2023-06-18] MEDS: lidocaine 2% viscous 15 ML, aluminum-mag hydrox-simethicon 30 ML, sucralfate oral liq 1 GM PO (21:04)
--- NOTE | 2023-06-18 21:09 | CTR_ITS ---
PROCEDURE INFORMATION: Exam: CT Head Without Contrast Exam date and time: 06/18/2023 9:33 PM Age: 47 years old Clinical indication: Patient HX: C/O dizziness; Additional info: Dizzy TECHNIQUE: Imaging protocol: Computed tomography of the head without contrast. Radiation optimization: All CT scans at this facility use at least one of these dose optimization techniques: automated exposure control; mA and/or kV adjustment per patient size (includes targeted exams where dose is matched to clinical indication); or iterative reconstruction. REPORTING DATA: Count of CT and Cardiac NM exams in prior 12 months: This patient has received 0 known CTs and 0 known cardiac nuclear medicine studies in the 12 months prior to the current study. COMPARISON: CT head wo con* [id number] 07/14/2020 7:45 PM RADIATION DOSE METRICS: Total DLP (mGy-cm): 1088.28 FINDINGS: Brain: No acute intracranial hemorrhage. No territorial region of crawford-white dedifferentiation. No extra-axial collection. No mass effect or midline shift. Cerebral ventricles: No acute hyrocephalus. Paranasal sinuses: Visualized sinuses are well-aerated. No fluid levels. Mastoid air cells: Visualized mastoid air cells are well aerated. Orbital cavities: No acute abnormality. Bones/joints: No acute calvarial fracture. Soft tissues: No acute abnormality. CT/CT head wo con* [id number] IMPRESSION: No acute findings.
[2023-06-18 22:25] VITALS: BP 156/100; PULSE 85; O2SAT 97
== END 2023-06-18 22:25 | disposition home or self-care (01) ==
PROVIDERS: Emergency Provider Emergency Medicine; PCP Family Medicine
DX: R60.0 Localized edema (principal); R42 Dizziness and giddiness; F17.210 Nicotine dependence, cigarettes, uncomplicated; F17.290 Nicotine dependence, other tobacco product, uncomplicated; J44.9 Chronic obstructive pulmonary disease, unspecified; I10 Essential (primary) hypertension
CPT/HCPCS: 36415; 70450; 80053; 81001; 83735; 83880; 85025; 93005; 99285

== ENCOUNTER → 2023-08-01 15:48 | Outpatient (BNVA) | payer MEDICAID, SELFPAY ==
[2023-06-01 09:40] VITALS: BP 132/90; BMI 33.1
== END ==
PROVIDERS: PCP Family Medicine; Referring Provider Family Medicine; Visit Provider Specialist
DX: M25.561 Pain in right knee (principal)
CPT/HCPCS: 73560; 73565; 99204

== ENCOUNTER 2023-08-15 11:24 | Outpatient (CLI) | payer MEDICAID, SELFPAY ==
[2023-06-01 09:40] VITALS: BP 132/90; BMI 33.1
--- NOTE | 2023-08-15 11:27 | MR_ITS ---
WS: [id number] MRI LUMBAR SPINE NONCONTRAST TECHNIQUE: Sagittal T1, T2 and STIR imaging. Axial T1 and T2 imaging. CLINICAL INFORMATION: DDD,LUMBAR COMPARISON: MRI 2020 FINDINGS: Mild lumbar curve. No acute compression. No high-grade central canal stenosis. Mild compression super ior endplate L2 unchanged. No new compression fractures. L1-L2: Mild annular bulging. Narrowing of the RIGHT subarticular recess. Mild facet arthropathy. Fora men are patent. L2-L3: No significant disc bulging. Mild facet arthropathy. Spinal canal and foramen are patent. L3-L4: Mild annular bulging with narrowing of the LEFT subarticular recess. Slight impingement on tra versing LEFT L4 nerve root. LEFT foraminal protrusion with mild LEFT foraminal narrowing and slight i mpingement on the exiting LEFT L3 nerve root. RIGHT foramen is patent. Moderate facet arthropathy. L4-L5: Mild annular bulging with slight narrowing of the subarticular recess bilaterally. Tiny RIGHT eccentric annular fissure. Mild LEFT and no significant RIGHT foraminal narrowing. Mild facet arthrop athy. L5-S1: No significant disc bulging. Moderate facet arthropathy. Spinal canal and foramen are patent. Visualized pelvic bony structures: Normal. Paravertebral soft tissues: Normal. Partially visualized hepatomegaly. IMPRESSION: 1. Chronic compression superior endplate L2 is unchanged compared to previous. No new or acute compr ession fractures. 2. LEFT proximal foraminal protrusion L3-4 slightly impinges the exiting LEFT L3 nerve root. Recomme nd correlation LEFT L3 nerve root symptoms. This is similar to previous. Narrowing of the LEFT L3-4 s ubarticular recess. 3. Disc bulge L4-5 with a small RIGHT eccentric annular fissure is new compared to previous. Slight narrowing of the subarticular recess at this level. 4. Mild disc bulging L1-2 with slight narrowing of the RIGHT subarticular recess appears unchanged. 5. Moderate facet arthropathy L3-L5.
== END 2023-08-15 11:25 | disposition home or self-care (01) ==
LOC: RAD 11:25
PROVIDERS: PCP Family Medicine; Visit Provider General Practice
DX: M51.36 Other intervertebral disc degeneration, lumbar region (principal)
CPT/HCPCS: 72148

== ENCOUNTER 2023-10-11 13:09 | Outpatient (CLI) | payer MEDICAID, SELFPAY ==
[2023-06-01 09:40] VITALS: BP 132/90; BMI 33.1
--- NOTE | 2023-10-11 13:45 | MR_ITS ---
WS: [id number] MRI RIGHT KNEE NONCONTRAST TECHNIQUE: Axial PD, coronal PD fat sat, coronal PD, sagittal PD, and sagittal PD fat-sat images obta nayd. CLINICAL INFORMATION: M25.569 - Pain in unspecified knee COMPARISON: None. FINDINGS: Distal quadriceps and patella tendons are intact. Hypertrophic patella. Normal ACL and PCL. Normal la teral meniscus. Mild chronic thinning of the medial meniscus which appears intact. No acute appearing meniscal tears. Normal lateral collateral ligament. Normal biceps femoris. Mild chondromalacia murphy la worse involving the medial patella facet. No subchondral edema. Medial and lateral patellar retinaculum appear intact. Small amount of fluid and edema deep to the me dial collateral ligament consistent with grade 1 injury. MCL appears intact. Popliteus appears intact . Normal popliteal fossa. Normal bone marrow signal involving the femoral condyles and tibial plateau . Mild degenerative narrowing medial and lateral joint compartments. IMPRESSION: 1. ACL and PCL appear intact. 2. Mild chondromalacia patella worse involving the medial patella facet. 3. Grade 1 injury MCL. 4. No acute appearing meniscal tears. 5. Mild tricompartment arthritis. Outbridge grading: grade II: blister-like swelling/fraying of articular cartilage extending to surfac e
== END 2023-10-11 13:10 | disposition home or self-care (01) ==
LOC: RAD 13:09
PROVIDERS: PCP Family Medicine; Visit Provider Specialist
DX: S89.81XA Other specified injuries of right lower leg, initial encounter (principal); M22.41 Chondromalacia patellae, right knee; M17.11 Unilateral primary osteoarthritis, right knee; X58.XXXA Exposure to other specified factors, initial encounter
CPT/HCPCS: 73721

== ENCOUNTER → 2023-10-19 13:00 | Outpatient (BNVA) | payer MEDICAID, SELFPAY ==
[2023-06-01 09:40] VITALS: BP 132/90; BMI 33.1
== END ==
PROVIDERS: PCP Family Medicine; Visit Provider Specialist
DX: M25.561 Pain in right knee (principal); G89.29 Other chronic pain
CPT/HCPCS: 99214

== ENCOUNTER → 2023-11-08 11:21 | Outpatient (BNVA) | payer MEDICAID, OTHER, SELFPAY ==
[2023-06-01 09:40] VITALS: BP 132/90; BMI 33.1
== END ==
PROVIDERS: PCP Family Medicine; Visit Provider Family Medicine
DX: I10 Essential (primary) hypertension (principal); R60.0 Localized edema; M25.561 Pain in right knee; G89.29 Other chronic pain; M51.9 Unspecified thoracic, thoracolumbar and lumbosacral intervertebral disc disorder; J30.2 Other seasonal allergic rhinitis
CPT/HCPCS: 80048

== ENCOUNTER → 2023-11-24 11:29 | Outpatient (BNVA) | payer MEDICAID, SELFPAY ==
[2023-06-01 09:40] VITALS: BP 132/90; BMI 33.1
== END ==
PROVIDERS: PCP Family Medicine; Visit Provider Emergency Medicine
DX: R55 Syncope and collapse (principal)
CPT/HCPCS: 93005

== ENCOUNTER → 2023-12-01 09:50 | Outpatient (BNVA) | payer MEDICAID, SELFPAY ==
[2023-06-01 09:40] VITALS: BP 132/90; BMI 33.1
== END ==
PROVIDERS: PCP Family Medicine; Visit Provider Family Medicine
DX: R39.9 Unspecified symptoms and signs involving the genitourinary system (principal); R30.9 Painful micturition, unspecified; I10 Essential (primary) hypertension; J30.2 Other seasonal allergic rhinitis; N39.0 Urinary tract infection, site not specified; N30.01 Acute cystitis with hematuria; R42 Dizziness and giddiness
CPT/HCPCS: 81000; 87077; 87086; 87184

== ENCOUNTER 2023-12-19 19:57 | Emergency (ER) | payer MEDICAID, SELFPAY ==
[2023-06-01 09:40] VITALS: BP 132/90; BMI 33.1
[2023-12-19 20:01] VITALS: BP 124/90; PULSE 95; RESP 16; TEMP 37.1; O2SAT 97
[2023-12-19 21:08] VITALS: BP 129/98; PULSE 92; RESP 16; O2SAT 99
--- NOTE | 2023-12-19 21:16 | XRR_ITS ---
PROCEDURE INFORMATION: Exam: XR Right Knee Exam date and time: 12/19/2023 9:30 PM Age: 48 years old Clinical indication: Pain; Knee; Right TECHNIQUE: Imaging protocol: Radiologic exam of the right knee. Views: 3 views. COMPARISON: MR knee RT wo con* [id number] 10/11/2023 1:56 PM FINDINGS: Bones/joints: Normal. Soft tissues: Normal. XR/XR knee RT 3V* [id number] IMPRESSION: No acute findings.
[2023-12-19] MEDS: ketorolac 30 mg/mL INJ IM (21:25)
[2023-12-19] MEDS: diphenhydrAMINE 50 mg/mL SDV 1mL IM (21:26)
[2023-12-19] MEDS: metoclopramide 5 mg/mL SDV 2 mL 10 MG IM (21:29)
--- NOTE | 2023-12-19 22:16 | W.ED.EXTPRO ---
HPI - Extremity Problem General: Chief complaint: Extremity Injury, Lower Stated complaint: right knee pain, headache pain Time Seen by Provider: 12/19/23 21:16 Source: patient Mode of arrival: ambulatory Limitations: no limitations History of Present Illness: 48-year-old female states she had a headache over the last 2 days states she has a history of migraine headaches this feels like her similar headaches in the past she does have photophobia and phonophobia rates the pain a 7 out of 10. States she is also been having some increased right knee pain she had a right knee injury months ago she is seen orthopedics had MRI that showed a grade 1 MCL injury she states that she is just had worsening pain and not able to bear weight without having pain. Denies any new injuries. Denies any fevers. Associated symptoms: Deny chest pain, fever(s) or rash Review of Systems Const: Denies: fever(s), chills, body aches or change in appetite Eyes: Denies: blurry vision ENMT: Denies: throat pain or dental pain Card: Denies: chest pain Resp: Denies: dyspnea GI: Denies: abdominal pain, nausea, vomiting or diarrhea Musc: Reports: extremity pain; Denies: neck pain or back pain Skin/Breast: Denies: rash Neuro: Reports: headache(s) PFSH ED PFSH: Medical History Peripheral edema Vaping nicotine dependence, tobacco product Marijuana use, episodic chronic pain Psychiatric care Psychiatric care Bipolar 1 disorder, mixed, moderate COPD (chronic obstructive pulmonary disease) LEON (obstructive sleep apnea) Restless leg syndrome Fibromyalgia GERD (gastroesophageal reflux disease) Hypertension Seasonal allergies Generalized anxiety disorder Post-traumatic stress disorder, chronic Surgical History H/O: hysterectomy H/O tubal ligation Hx of tonsillectomy H/O adenoidectomy H/O wrist surgery H/O shoulder surgery Family History Other CAD (coronary artery disease) Cancer Diabetes Lung disease Stroke Social History Smoking and tobacco/nicotine status: current every day tobacco/nicotine user cigarettes Packs smoked per day: 0 Years cigarettes smoked: 32 [ Other cigarette details: quit cigarettes and only vapes] and e-cigarettes E-Cigarette Details: e-cigarette and with nicotine E-cig/vape details: refills 1-2 times a day - 50 mg of nicotine(client showed me the cartridge) Quit status (tobacco/nicotine): has tried quititng Number of times tried to quit tobacco: 2 Second hand smoke exposure: Yes Alcohol intake: current Alcohol intake frequency: few times a month Alcohol type: wine Substance/Drug Use: never Adopted: No Caregiver/support person: No Lives independently: Yes Household members: none Housing: Manufactured/Mobile home Marital status: Marital status details: a very long time 2004 Number of children: 2 Number of grandchildren: 2 Highest education level completed: Associate Degree: Occupational, Technical, Vocational Program 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 service: No Current occupational status: disabled Current occupation: trying to get disability Current occupational exposures/hazards: No Pets and animals: Yes (3 cats and 2 dogs) Pets & animals: cat(s) and dog(s) Leisure activites: art, games, reading and other Leisure activities details: nathalie Sexually active: No Do you think of yourself as: Straight/Heterosexual Current gender identity: Female Damari/Congregation: Wicca Special damari needs: No Agree to transfusion: Yes Female Reproductive History: Para: 2 Spontaneous abortions: No Physical Exam Const: COMMON NORMALS: no acute distress, patient oriented x3 and healthy appearing HENMT: COMMON NORMALS: normocephalic and atraumatic HEAD & SCALP: normocephalic and atraumatic Neck/C-Spine: COMMON NORMALS: full ROM and supple Chest: COMMONS NORMALS: normal inspection of the chest Resp: COMMON NORMALS: normal respiratory effort, No retractions, No use of accessory muscles and clear to auscultation bilaterally AUSCULTATION: clear to auscultation bilaterally Cardio: COMMON NORMALS: regular rate, regular rhythm and No murmurs present (Cardio) RATE: regular rate RHYTHM: regular rhythm Extremity: NARRATIVE EXTREMITY EXAM: Slight tenderness noted on right knee no obvious deformity distal pulses sensation intact. Neuro: COMMON NORMALS: patient oriented x3, moves all extremities and no focal motor deficits Psych: COMMON NORMALS: mental status grossly normal, Normal thought process present and cooperative THOUGHT PROCESS: Normal thought process present Skin: COMMON NORMALS: no rashes or lesions noted and no wounds GENERAL SKIN EXAM: no rashes or lesions noted Course Vital Signs: Vital signs: Vital Signs Temperature 98.7 F 12/19/23 20:01 Pulse Rate 92 12/19/23 21:08 Respiratory Rate 16 12/19/23 21:08 Blood Pressure 129/98 12/19/23 21:08 Pulse Oximetry 99 12/19/23 21:08 Oxygen Delivery Me thod Room Air 12/19/23 21:08 MDM - Extremity (Nontraumatic) Medical Decision Making Patient presents here with a headache likely migraine headache she has no signs of subarachnoid hemorrhage or meningitis headaches improving here she is also had right knee pain with more difficulty walking she had MRI it showed a grade 1 MCL strain no new injuries x-ray here showed no acute abnormalities will have her use crutches weight-bear as tolerated we will get her follow-up with Jes. Medical Records I reviewed the patient's medical records. XR interpretation done by ED provider, pending radiology final review ED provider radiology interpretation(s): xr Knee: no acute abnormality Discharge Plan Discharge Patient Disposition: Home Clinical Impression: Knee pain, right Condition: Stable Prescriptions: New Naprosyn 500 mg tablet 500 mg PO BID PRN (Reason: pain) Qty: 20 0RF No Action acetylcysteine 600 mg capsule 600 mg PO BID Qty: 60 3RF Rx Instructions: Take one capsule twice per day propranolol 20 mg tablet 20 mg PO BID Qty: 60 6RF Rx Instructions: Take one tablet twice per day quetiapine [Seroquel XR] 400 mg tablet extended release 24 hr 400 mg PO .7 pm Qty: 30 6RF Rx Instructions: Take one tablet at 7 pm quetiapine [Seroquel] 100 mg tablet 100 mg PO BID Qty: 60 6RF Rx Instructions: Take one tablet every morning and late afternoon furosemide 20 mg tablet 20 mg PO QAM PRN (Reason: edema) 30 Days Qty: 30 2RF hydrochlorothiazide 25 mg tablet 25 mg PO BID 30 Days Qty: 60 5RF metoprolol succinate 25 mg tablet extended release 24 hr 25 mg PO DAILY 90 Days Qty: 90 1RF omeprazole 40 mg capsule,delayed release(DR/EC) 40 mg PO BID 90 Days Qty: 180 1RF fluticasone propionate 50 mcg/actuation spray,suspension 1 spray intranasal BID PRN (Reason: allergy symptoms) Qty: 16 5RF Rx Instructions: administer into each nostril cyclobenzaprine 10 mg tablet 10 mg PO Q8H 30 Days Qty: 90 5RF fluticasone propion-salmeterol [Advair Diskus] 100-50 mcg/dose blister with device See Rx Instructions .ROUTE .COMPLEX Qty: 60 5RF Dose Instruction: INHALE 1 DOSE BY MOUTH EVERY 12 HOURS Rx Instructions: INHALE 1 DOSE BY MOUTH EVERY 12 HOURS azelastine 137 mcg (0.1 %) aerosol,spray 1 spray intranasal BID Rx Instructions: administer into each nostril hydroxyzine pamoate 50 mg capsule 50 mg PO BID PRN (Reason: anxiety/itching) Qty: 60 3RF Rx Instructions: May take one capsule twice per day as needed for anxiety/itching (DME) Hinged Knee Brace See Rx Instructions .Route .MEDSUPPLY Qty: 1 0RF Rx Instructions: As directed ondansetron 4 mg tablet,disintegrating 4 mg PO Q6H PRN (Reason: nausea and vomiting) Qty: 20 0RF Rx Instructions: 340b please loratadine 10 mg tablet 10 mg PO DAILY 90 Days Qty: 90 1RF Discharge Orders: Discharge ED (Routine); Ordered 12/19/23 Ordered By: Elder Glasgow Referrals: Kristan Andre MD [Physician] - 4-7 days Lian Sylvester MD [Primary Care Provider] - Discharge Diet: Advance as tolerated Discharge Activity: Resume usual activity Patient Instructions: Knee Pain (ED) Coding Level of Care Code ED Children'S Book Author for Jenni Lazo
[2023-12-19] MEDS: HYDROcodone-acetaminophen 5-325 mg Tablet 1 TAB PO (22:23)
--- NOTE | 2023-12-22 07:25 | DCPLANNER ---
messaged ortho for er f/u
== END 2023-12-19 22:31 | disposition home or self-care (01) ==
PROVIDERS: Emergency Provider Emergency Medicine; PCP Family Medicine
DX: M25.561 Pain in right knee (principal); F17.210 Nicotine dependence, cigarettes, uncomplicated; F17.290 Nicotine dependence, other tobacco product, uncomplicated; J44.9 Chronic obstructive pulmonary disease, unspecified; I10 Essential (primary) hypertension
CPT/HCPCS: 73562; 96372; 99284; J1200; J1885; J2765

== ENCOUNTER → 2023-12-27 10:30 | Outpatient (BNVA) | payer MEDICAID, SELFPAY ==
[2023-06-01 09:40] VITALS: BP 132/90; BMI 33.1
== END ==
PROVIDERS: PCP Family Medicine; Visit Provider Nurse Practitioner
DX: M25.361 Other instability, right knee (principal); S83.411A Sprain of medial collateral ligament of right knee, initial encounter; M17.11 Unilateral primary osteoarthritis, right knee; W19.XXXA Unspecified fall, initial encounter
CPT/HCPCS: 20610; 99214; J1100; J2795; J3301

== ENCOUNTER → 2024-02-13 11:42 | Outpatient (BNVA) | payer MEDICAID, SELFPAY ==
[2023-06-01 09:40] VITALS: BP 132/90; BMI 33.1
== END ==
PROVIDERS: PCP Family Medicine; Visit Provider Family Medicine
DX: Z79.899 Other long term (current) drug therapy (principal); I10 Essential (primary) hypertension; E87.6 Hypokalemia; R73.9 Hyperglycemia, unspecified
CPT/HCPCS: 80053; 83036; 83735

== ENCOUNTER → 2024-02-20 15:09 | Outpatient (BNVA) | payer MEDICAID, SELFPAY ==
[2023-06-01 09:40] VITALS: BP 132/90; BMI 33.1
== END ==
PROVIDERS: PCP Family Medicine; Visit Provider Nurse Practitioner
DX: S83.512A Sprain of anterior cruciate ligament of left knee, initial encounter (principal); X58.XXXA Exposure to other specified factors, initial encounter; M17.12 Unilateral primary osteoarthritis, left knee
CPT/HCPCS: 20610; 73560; 73565; 99214; J2795; J3301

== ENCOUNTER → 2024-03-11 15:27 | Outpatient (BNVA) | payer MEDICAID, SELFPAY ==
[2023-06-01 09:40] VITALS: BP 132/90; BMI 33.1
== END ==
PROVIDERS: PCP Family Medicine; Visit Provider Nurse Practitioner Family
DX: R30.0 Dysuria (principal)
CPT/HCPCS: 81000; 87086

== ENCOUNTER → 2024-04-02 16:23 | Outpatient (BNVA) | payer MEDICAID, OTHER, SELFPAY ==
[2023-06-01 09:40] VITALS: BP 132/90; BMI 33.1
== END ==
PROVIDERS: PCP Family Medicine; Visit Provider Nurse Practitioner
DX: M17.12 Unilateral primary osteoarthritis, left knee (principal); M25.562 Pain in left knee
CPT/HCPCS: 20610; 36415; 80053; 81001; 85025; 87086; J1100; J2795; J3301

== ENCOUNTER → 2024-04-09 11:17 | Outpatient (BNVA) | payer MEDICAID, SELFPAY ==
[2023-06-01 09:40] VITALS: BP 132/90; BMI 33.1
== END ==
PROVIDERS: PCP Family Medicine; Visit Provider Family Medicine
DX: Z01.818 Encounter for other preprocedural examination (principal)
CPT/HCPCS: 81000; 85025; 93005

== ENCOUNTER 2024-04-26 07:55 | Day surgery (SDC) | payer MEDICAID, SELFPAY ==
[2023-06-01 09:40] VITALS: BP 132/90; BMI 33.1
[2024-04-26] VITALS (19 sets, daily range): BP systolic 104–139; BP diastolic 64–95; PULSE 67–87; RESP 12–18; TEMP 36.1–36.6; O2SAT 89–100; BMI 33.1
--- NOTE | 2024-04-26 08:27 | P.HPUD_ITS ---
Surgery/Procedure H&P Update DATE OF PROCEDURE: April 26, 2024 DATE H&P PERFORMED: 04/09/24 H&P UPDATE INFORMATION: I have reviewed H&P completed within last 30 days, I have examined patient prior to procedure, No changes to prior documentation and H&P is in [facility] [place] [facility] EMR on date indicated CHANGES TO PREVIOUS DOCUMENTATION: HCTZ increased to TID on 04/25/24 PRIMARY INDICATION FOR PROCEDURE: MRI [facility] Read by Dr. Hanson IMPRESSION: 1. ACL and PCL appear intact. 2. Mild chondromalacia patella worse involving the medial patella facet. 3. Grade 1 injury MCL. 4. No acute appearing meniscal tears. 5. Mild tricompartment arthritis. Outbridge grading: grade II: blister-like swelling/fraying of articular cartilage extending to surface PLANNED PROCEDURE: Operation Date: 04/26/24 09:10 Proposed Procedures p Knee Arthroscopy with debridement(Right) - Kristan Andre MD Related Problem List Diagnoses (1) Chronic pain of right knee: (2) Osteoarthritis of right knee: Qualifiers: Osteoarthritis type: primary Qualified Code(s): M17.11 - Unilateral primary osteoarthritis, right knee (3) MCL sprain of right knee: Qualifiers: Encounter type: initial encounter Qualified Code(s): S83.411A - Sprain of medial collateral ligament of right knee, initial encounter
--- NOTE | 2024-04-26 08:34 | P.ANESASSM_ITS ---
Pre-Anesthetic Assessment Height/Weight: Height 1.6 m Weight 84.822 kg Temp Pulse Resp BP Pulse Ox O2 Del Method 97.3 F L 87 18 128/95 96 Room Air 04/26/24 08:08 04/26/24 08:08 04/26/24 08:08 04/26/24 08:08 04/26/24 08:08 04/26/24 08:08 Operation Date: 04/26/24 09:10 Proposed Procedures p Knee Arthroscopy with debridement(Right) - Kristan Andre MD Familial anesthetic complications: none Was Beta Guy taken within 24 hours: N/A Was Clonidine taken within 24 hours: N/A Last intake: Intake Last Liquid Date 04/25/24 Last Liquid Time 23:50 Last Solid Date 04/25/24 Last Solid Time 23:50 Social No alcohol and No tobacco vapes Exam alert, oriented x 3, clear to auscultation bilaterally and regular rate & rhythm Airway Mallampati: Class I Dentition: full Pulmonary Asthma, Chronic Obstructive Pulmonary Disease and Sleep Apnea CV/HEM Hypertension GI Gastroesophageal Reflux Disease Metabolic Diabetes Mellitus Anesthetic Plan ASA status: 3 Anesthesia: General Risk of > 500 ml blood loss (7ml/kg in children): No Medications/Allergies Home Medications Medication Instructions Recorded Confirmed Last Taken Type azelastine 137 mcg (0.1 %) nasal 1 spray intranasal BID 08/01/23 04/25/24 Unknown History spray Hinged Knee Brace #1 ea 10/19/23 04/25/24 Unknown Rx propranolol 20 mg tablet 20 mg PO BID #60 tabs 12/07/23 04/25/24 04/26/24 Rx quetiapine 400 mg tablet,extended 400 mg PO .7 pm #30 tabs 12/07/23 04/25/24 04/24/24 Rx release 24 hr (Seroquel XR) diclofenac sodium 1 % topical gel 2 g topical QID #100 grams 12/27/23 04/25/24 Unknown Rx cetirizine 10 mg tablet (Allergy 10 mg PO DAILY PRN Allergic 01/18/24 04/25/24 04/25/24 History Relief (cetirizine)) Symptoms levocetirizine 5 mg tablet (Xyzal) 5 mg PO DAILY 01/18/24 04/25/24 04/25/24 History quetiapine 100 mg tablet (Seroquel) 100 mg PO DIRECTED #60 tabs 01/18/24 04/25/24 04/25/24 Rx tizanidine 4 mg capsule 4 mg PO BID PRN Muscle Spasm 01/18/24 04/25/24 04/25/24 History alcohol swabs 1 pad topical DIRECTED #200 ea 02/13/24 04/25/24 Unknown Rx blood-glucose meter #1 ea 02/13/24 04/25/24 Unknown Rx lancets #200 ea 02/13/24 04/25/24 Unknown Rx blood sugar diagnostic (Blood #200 ea 02/20/24 04/25/24 Unknown Rx Glucose Test strips) hinged knee brace #1 ea 02/20/24 04/25/24 Unknown Rx buspirone 30 mg tablet 30 mg PO BID #60 tabs 03/29/24 04/25/24 04/25/24 Rx duloxetine 30 mg capsule,delayed 30 mg PO .morning #30 caps 03/29/24 04/25/24 04/25/24 Rx release (Cymbalta) Advair Diskus 100 mcg-50 mcg/dose See Rx Instructions .Route 04/02/24 04/25/24 04/25/24 Rx powder for inhalation (fluticasone .COMPLEX #60 ea propion-salmeterol) empagliflozin 10 mg tablet 10 mg PO QAM 30 days #30 tabs 04/02/24 04/25/24 04/22/24 Rx (Jardiance) fluticasone propionate 50 1 spray intranasal BID PRN allergy 04/02/24 04/25/24 Unknown Rx mcg/actuation nasal symptoms #16 grams spray,suspension hydrochlorothiazide 25 mg tablet 25 mg PO BID 30 days #60 tabs 04/02/24 04/25/24 04/25/24 Rx loratadine 10 mg tablet 10 mg PO DAILY 90 days #90 tabs 04/02/24 04/25/24 04/25/24 Rx metoprolol succinate 25 mg 25 mg PO DAILY 90 days #90 tabs 04/02/24 04/25/24 04/26/24 Rx tablet,extended release 24 hr omeprazole 40 mg capsule,delayed See Rx Instructions .Route 04/02/24 04/25/24 04/25/24 Rx release .COMPLEX #180 caps hydrocodone 10 mg-acetaminophen 1.5 tab PO DAILY 04/25/24 04/25/24 Unknown History 325 mg tablet hydroxyzine pamoate 50 mg capsule 50 mg PO TID PRN anxiety/itching 04/25/24 04/25/24 Unknown Rx #90 caps Allergies Allergy/AdvReac Type Severity Reaction Status Date / Time aspirin Allergy Severe Hives & Verified 04/25/24 13:50 throat closes bee venom protein (honey bee) Allergy Severe Hives & Verified 04/25/24 13:50 throat closes citric acid Allergy Severe Hives & Verified 04/25/24 13:50 throat closes morphine Allergy Severe Hives & Verified 04/25/24 13:50 throat closes nitrofurantoin Allergy Severe Hives & Verified 04/25/24 13:50 [From Macrobid] throat closes Penicillins Allergy Severe Hives & Verified 04/25/24 13:50 throat closes pollen extracts Allergy Severe Hives & Verified 04/25/24 13:50 throat closes Sulfa (Sulfonamide Allergy Severe Hives & Verified 04/25/24 13:50 Antibiotics) throat closes metformin Allergy Mild Rash Verified 04/25/24 13:50 baclofen AdvReac Severe Slurring Verified 04/25/24 13:50 words, delerious gabapentin AdvReac Severe peripheral Verified 04/25/24 13:50 edema [facility] Anesthesia Medical History Osteoarthritis of left knee Acute pain of left knee Sprain of anterior cruciate ligament of left knee Chronic pain of right knee Osteoarthritis of right knee MCL sprain of right knee Peripheral edema Vaping nicotine dependence, tobacco product Marijuana use, episodic chronic pain Psychiatric care Psychiatric care Bipolar 1 disorder, mixed, moderate COPD (chronic obstructive pulmonary disease) LEON (obstructive sleep apnea) Restless leg syndrome Fibromyalgia GERD (gastroesophageal reflux disease) Hypertension Seasonal allergies Generalized anxiety disorder Post-traumatic stress disorder, chronic Surgical History H/O: hysterectomy H/O tubal ligation Hx of tonsillectomy H/O adenoidectomy H/O wrist surgery H/O shoulder surgery Family History Other CAD (coronary artery disease) Cancer Diabetes Lung disease Stroke Social History Smoking and tobacco/nicotine status: current every day tobacco/nicotine user (VAPES) cigarettes Packs smoked per day: 0 Years cigarettes smoked: 32 [ Other cigarette details: quit cigarettes and only vapes] and e-cigarettes E-Cigarette Details: e-cigarette and with nicotine E-cig/vape details: refills 1-2 times a day - 50 mg of nicotine(client showed me the cartridge) Quit status (tobacco/nicotine): has tried quititng Number of times tried to quit tobacco: 2 Second hand smoke exposure: Yes Alcohol intake: current Alcohol intake frequency: few times a month Alcohol type: wine Substance/Drug Use: never Adopted: No Caregiver/support person: No Lives independently: Yes Household members: none Housing: Manufactured/Mobile home Marital status: Marital status details: a very long time 2004 Number of children: 2 Number of grandchildren: 2 Highest education level completed: Associate Degree: Occupational, Technical, Vocational Program 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
[2024-04-26] MEDS: sodium chloride 0.9% 1,000 ML 30 ML IV (08:51)
[2024-04-26] MEDS: CELEcoxib 200 mg Capsule 400 MG PO (08:52)
[2024-04-26] MEDS: acetaminophen 1,000 MG/100 ML PIGGYBACK 400 MG IV (08:52)
[2024-04-26] MEDS: insulin regular-human 100 units/1 mL 10 UNIT IVP (09:03)
[2024-04-26 09:12] LABS: Blood Urea Nitrogen 20 mg/dL (6-20); Calcium 8.4 mg/dL (8.5-10.5); Carbon Dioxide 30 mmol/L (22-29); Chloride 86 mmol/L (98-107); Creatinine Clr Calc Pharmacy 70.9978; Glomerular Filtration Rate 59.2 mL/min (90-130); Glucose 385 mg/dL (65-115); Osmolality Calculated 293 mOsm/kg (285-295); Sodium 132 mmol/L (136-145)
[2024-04-26] MEDS: clindamycin 600 MG/50 ML PREMIX 100 MG IV (09:16)
[2024-04-26 11:08] LABS: Glucose Point of Care 364 mg/dL (70-110)
--- NOTE | 2024-04-26 11:16 | PM.OP ---
Operative Report Date of procedure: April 26, 2024 Pre-op diagnosis: Right knee acute pain with osteoarthritis Post-op diagnosis: Acute right knee pain with osteoarthritis and medial and lateral meniscal tears Post-op findings: Anterior horn medial meniscal tear, inner rim degenerative tearing of the lateral meniscus. Procedure done: Right arthroscopic knee surgery with partial medial and lateral meniscectomies, chondroplasty medial and lateral femoral condyles, and partial synovectomy Implants: None Specimens removed/disposition: Meniscal and synovial fragments disposed of Pathology: None Surgeon: Kristan Andre MD Marketing Developer: None Anesthesia: General (Per LMA, ASA 3) Estimated blood loss (mL): 5 Tourniquet time (min): 40 (At 350 mmHg) IV fluids (mL): 1,000 Urine output (mL): 0 (No Boyle) Complications: None Findings: As noted above Condition: stable Disposition: PACU (Then return to same-day surgery for discharge to home) Brief History: This 48-year-old woman presented to the office following chronic right knee pain. She was unresponsive to conservative measures such as cortisone injection. She had mild to moderate relief with cortisone injection but only for 3 weeks or so. She has had anti-inflammatories both topically and orally as well as hinged knee bracing and home physical therapy program from which she received little to no benefit. After discussion in the office, the patient wished to proceed with arthroscopic intervention. Risks and complications were discussed with her, and consents were signed. Questions were answered. Procedure: Patient was brought to the operating theater and after undergoing adequate general per LMA, ASA 3, the patient's right lower extremity was prepped and draped in usual fashion utilizing DuraPrep. A tourniquet was placed high on the leg prior to prepping and draping. The tourniquet was elevated prior to commencement of the surgical procedure to 250 mmHg. Total tourniquet time was 40 minutes. Elevation followed prepping and exsanguination. Prior to commencement of the surgical procedure, a surgical pause was performed. At the time of the surgical pause, we identified the site and side of surgery. We also confirm the patient's identity and appropriate and timely administration of preoperative antibiotics. Preoperative surgical markings were also visualized at this time. Standard arthroscopic portals were utilized including superolateral, inferomedial, and inferolateral portals. The examination commenced in the suprapatellar pouch area where there was noted to be synovial inflammation, but no significant chondromalacia of the patella. The arthroscope was then passed in the medial compartment where there was noted to be tearing of the anterior portion of the medial meniscus. The arthroscope was then passed across the notch area where anterior cruciate ligament was visualized and found to be intact. There was anterior synovium as well, and a shaver was utilized to debride the anterior synovium to allow better visualization. The scope was passed into the lateral compartment with the knee in a [id number] position. Lateral meniscus was noted to have inner rim tearing which was felt to be degenerative. This was addressed with the intra-articular shaver and subsequently the heat wand. The wand was also utilized to address the chondromalacia of the lateral tibial plateau. Once lateral meniscus had been thus prepared it was palpated and found to be intact and not displaceable into the knee joint. Scope was then returned to the medial compartment where anterior horn of the medial meniscus was debrided utilizing both the intra-articular shaver and the heat wand. Once again, chondroplasty was performed of the medial femoral condyle primarily using the heat wand. The meniscus was palpated and found to be not displaceable into the knee joint. The arthroscope was then returned to the patellofemoral joint where further synovectomy was accomplished. Following this debridement, the scope was passed back through the knee compartments to evaluate for other abnormalities. Finding none, attention was directed to closure. The knee was copiously irrigated and suctioned dry. Following this, each portal was closed with a simple suture followed by Dermabond., Steri-Strip, and OpSite. Sterile dressing was placed consisting of the 4 x 4's followed by the Ronald wrap. Patient was returned to Recovery Room in satisfactory condition where she will be discharged home to follow-up in the office as scheduled. There were no complications and no specimens. Related Problem List Diagnoses (1) Degenerative tear of lateral meniscus of right knee: (2) Degenerative tear of medial meniscus of right knee: (3) Osteoarthritis of right knee:
[2024-04-26] MEDS: fentaNYL 50 mcg/mL INJ 2mL IVP (11:21)
[2024-04-26 11:57] LABS: Glucose Point of Care 268 mg/dL (70-110)
--- NOTE | 2024-04-26 13:15 | ANE.PACU2 ---
Inpatient post-anesthesia follow up: Airway intact: Yes Vital signs: Temperature 97.8 F Pulse Rate 80 Respiratory Rate 16 Blood Pressure 104/64 Pulse Oximetry 94 Oxygen Delivery Me thod Room Air Oxygen Flow Rate 2 Fraction of Inspir ed Oxygen Hydration adequate: Yes Nausea and vomiting: No Pain level: 1 Mental status: Baseline
== END 2024-04-26 13:15 | disposition home or self-care (01) ==
PROVIDERS: Anesthesiology; PCP Family Medicine; Visit Provider Specialist
PROC: (CPT 29870; principal; 2024-04-26 09:00)
DX: M17.11 Unilateral primary osteoarthritis, right knee (principal); S83.281A Other tear of lateral meniscus, current injury, right knee, initial encounter; S83.241A Other tear of medial meniscus, current injury, right knee, initial encounter; X58.XXXA Exposure to other specified factors, initial encounter; J44.9 Chronic obstructive pulmonary disease, unspecified; I10 Essential (primary) hypertension; K21.9 Gastro-esophageal reflux disease without esophagitis; E11.9 Type 2 diabetes mellitus without complications; G47.33 Obstructive sleep apnea (adult) (pediatric); F17.200 Nicotine dependence, unspecified, uncomplicated
CPT/HCPCS: 29875; 29880; 36415; 36416; 80048; 82962; J0131; J1100; J1815; J2405; J2704; J3010; J3490; J7030

== ENCOUNTER → 2024-06-06 13:30 | Outpatient (BNVA) | payer MEDICAID, SELFPAY ==
[2024-05-07 07:25] VITALS: BP 132/90; BMI 33.1
== END ==
PROVIDERS: PCP Family Medicine; Visit Provider Nurse Practitioner Psychiatric/Mental Health
DX: F31.62 Bipolar disorder, current episode mixed, moderate (principal); F41.1 Generalized anxiety disorder; Z79.899 Other long term (current) drug therapy
CPT/HCPCS: 80061; 83036

== ENCOUNTER → 2024-06-11 15:23 | Outpatient (BNVA) | payer MEDICAID, SELFPAY ==
[2024-06-14 09:22] VITALS: BP 141/102; BMI 32.9
== END ==
PROVIDERS: PCP Family Medicine; Visit Provider Specialist
DX: M23.300 Other meniscus derangements, unspecified lateral meniscus, right knee (principal); M23.203 Derangement of unspecified medial meniscus due to old tear or injury, right knee
CPT/HCPCS: 99214

== ENCOUNTER → 2024-07-30 12:03 | Outpatient (BNVA) | payer MEDICAID, SELFPAY ==
[2024-06-14 09:22] VITALS: BP 141/102; BMI 32.9
== END ==
PROVIDERS: PCP Family Medicine; Visit Provider Specialist
DX: M23.300 Other meniscus derangements, unspecified lateral meniscus, right knee (principal); M23.203 Derangement of unspecified medial meniscus due to old tear or injury, right knee; M17.11 Unilateral primary osteoarthritis, right knee; G89.29 Other chronic pain; S83.411D Sprain of medial collateral ligament of right knee, subsequent encounter; X58.XXXD Exposure to other specified factors, subsequent encounter
CPT/HCPCS: 73560; 73565; 99213

== ENCOUNTER → 2024-08-31 10:39 | Outpatient (BNVA) | payer MEDICAID, SELFPAY ==
[2024-06-14 09:22] VITALS: BP 141/102; BMI 32.9
== END ==
PROVIDERS: PCP Family Medicine; Visit Provider Specialist
DX: M17.11 Unilateral primary osteoarthritis, right knee (principal); Z71.89 Other specified counseling
CPT/HCPCS: 20610; J1100; J2795; J3301

== ENCOUNTER → 2024-11-30 11:01 | Outpatient (BNVA) | payer MEDICAID, SELFPAY ==
[2024-06-14 09:22] VITALS: BP 141/102; BMI 32.9
== END ==
PROVIDERS: PCP Family Medicine; Visit Provider Specialist
DX: M17.11 Unilateral primary osteoarthritis, right knee (principal)
CPT/HCPCS: 20610; J1100; J2795; J3301; J9999

== ENCOUNTER → 2024-12-19 11:00 | Outpatient (BNVA) | payer MEDICAID, SELFPAY ==
[2024-06-14 09:22] VITALS: BP 141/102; BMI 32.9
== END ==
PROVIDERS: PCP Family Medicine; Visit Provider Specialist
DX: M17.12 Unilateral primary osteoarthritis, left knee (principal); S83.512A Sprain of anterior cruciate ligament of left knee, initial encounter; X58.XXXA Exposure to other specified factors, initial encounter
CPT/HCPCS: 20610; 73560; 73565; 99214

== ENCOUNTER → 2025-03-06 15:13 | Outpatient (BNVA) | payer MEDICAID, SELFPAY ==
[2024-06-14 09:22] VITALS: BP 141/102; BMI 32.9
== END ==
PROVIDERS: PCP Family Medicine; Visit Provider Specialist
DX: M17.0 Bilateral primary osteoarthritis of knee (principal)
CPT/HCPCS: 20610; J1100; J2795; J3301; J9999

== ENCOUNTER → 2025-06-21 10:47 | Outpatient (BNVA) | payer MEDICAID, SELFPAY ==
[2024-06-14 09:22] VITALS: BP 141/102; BMI 32.9
== END ==
PROVIDERS: PCP Student in an Organized Health Care Education/Training Program; Visit Provider Specialist
DX: M17.0 Bilateral primary osteoarthritis of knee (principal)
CPT/HCPCS: 20610; J1100; J2795; J3301; J9999